=== PATIENT | female | born 1980 | race Caucasian/White ===

== ENCOUNTER 2022-12-25 10:00 | Outpatient (RCR) | payer OTHER, SELFPAY ==
--- NOTE | 2022-06-24 11:12 | URNOTE ---
REceived request for prior auth for Zoladex ([id number]). Per [facility], prior authorization is not required.
[2022-07-10 11:32] VITALS: BP 128/85; PULSE 99; RESP 16; TEMP 36.7; O2SAT 98
[2022-07-10] MEDS: GOSERELIN ACETATE 3.6 MG IMPLANT SUBCUT (12:20)
--- NOTE | 2022-07-10 12:40 | PC.NURSE ---
Zoladex & Labs Che present at [facility] for her first Zoladex injection. MD orders read that labs (CBC & CMP) are due prior to injection. These labs were drawn at [facility] on 07/09/2022 (yesterday). CBC was resulted, however the CMP was pending. Contacted [facility] and they reported that the [facility] was running behind and that things are taking longer than usual. RN contacted the [facility] and spoke with a machine oiler who discussed case with the oncology team. This medical technical writer was given verbal permission to proceed with Zoladex today without CMP results. RN also inquired about whether or not labs were needed prior to every Zoladex or just this first one. It was clarified that labs are only needed prior to this first injection. Pt will see Dr. Yip next week and will also discuss lab schedule with her at that time. Education provided re: Zoladex. Chemo Care print out was provided. Pt tolerated injection well. Supportive listening provided. Luba Silveira RN
[2022-08-07 10:00] VITALS: BP 117/82; PULSE 92; RESP 18; TEMP 36.4; O2SAT 96
[2022-08-07] MEDS: GOSERELIN ACETATE 3.6 MG IMPLANT SUBCUT (10:18)
[2022-09-04 09:30] VITALS: BP 137/90; PULSE 90; RESP 16; TEMP 36.1; O2SAT 96
[2022-09-04] MEDS: GOSERELIN ACETATE 3.6 MG IMPLANT SUBCUT (09:59)
[2022-10-02 10:04] VITALS: BP 124/85; PULSE 80; RESP 16; TEMP 36.2; O2SAT 98
[2022-10-02] MEDS: GOSERELIN ACETATE 3.6 MG IMPLANT SUBCUT (10:17)
[2022-10-30 10:06] VITALS: BP 116/68; PULSE 93; RESP 16; TEMP 37.1; O2SAT 97
[2022-10-30] MEDS: GOSERELIN ACETATE 3.6 MG IMPLANT SUBCUT (10:32)
[2022-11-27 08:51] VITALS: BP 112/82; PULSE 88; RESP 16; TEMP 35.8; O2SAT 98
[2022-11-27] MEDS: GOSERELIN ACETATE 3.6 MG IMPLANT SUBCUT (09:03)
[2022-12-25 09:46] VITALS: BP 118/80; PULSE 97; RESP 16; TEMP 36; O2SAT 98
[2022-12-25] MEDS: GOSERELIN ACETATE 3.6 MG IMPLANT SUBCUT (10:08)
== END 2023-01-06 23:59 | disposition home or self-care (01) ==
LOC: CCIC 10:00
PROVIDERS: Visit Provider Clinical Nurse Specialist
DX: C50.912 Malignant neoplasm of unspecified site of left female breast (principal); Z79.811 Long term (current) use of aromatase inhibitors
CPT/HCPCS: 96401; J9202

== ENCOUNTER 2023-07-09 09:00 | Outpatient (RCR) | payer OTHER, SELFPAY ==
[2023-01-22] MEDS: GOSERELIN ACETATE 3.6 MG IMPLANT SUBCUT (09:37)
[2023-01-22 10:20] VITALS: BP 133/83; PULSE 86; RESP 16; TEMP 36.4; O2SAT 98
[2023-02-19 08:08] VITALS: BP 124/84; PULSE 79; RESP 16; TEMP 35.5; O2SAT 97
[2023-02-19] MEDS: GOSERELIN ACETATE 3.6 MG IMPLANT SUBCUT (08:20)
[2023-03-19 09:10] VITALS: BP 127/84; PULSE 84; RESP 16; TEMP 36.1; O2SAT 97
[2023-03-19] MEDS: GOSERELIN ACETATE 3.6 MG IMPLANT SUBCUT (09:38)
[2023-04-16 09:12] VITALS: BP 113/77; PULSE 103; RESP 18; TEMP 36.8; O2SAT 98
[2023-04-16] MEDS: GOSERELIN ACETATE 3.6 MG IMPLANT SUBCUT (09:37)
[2023-05-14 09:00] VITALS: BP 112/75; PULSE 82; RESP 14; TEMP 36.1; O2SAT 99
[2023-05-14] MEDS: GOSERELIN ACETATE 3.6 MG IMPLANT SUBCUT (09:21)
[2023-06-11 08:57] VITALS: BP 114/78; PULSE 93; RESP 16; TEMP 35.7; O2SAT 97
[2023-06-11] MEDS: GOSERELIN ACETATE 3.6 MG IMPLANT SUBCUT (09:08)
--- NOTE | 2023-07-05 09:37 | URNOTE ---
Received request for prior authorization for Zoladex ([id number]). Per [facility], prior authorization is not required per Rep. Ángela Guzman. Ref# [id number].
[2023-07-09 08:59] VITALS: BP 113/74; PULSE 92; RESP 16; TEMP 36.2; O2SAT 99
[2023-07-09] MEDS: GOSERELIN ACETATE 3.6 MG IMPLANT SUBCUT (09:39)
== END 2023-07-21 23:59 | disposition home or self-care (01) ==
LOC: CCIC 09:00
PROVIDERS: Visit Provider Clinical Nurse Specialist
DX: C50.912 Malignant neoplasm of unspecified site of left female breast (principal); Z17.0 Estrogen receptor positive status [ER+]
CPT/HCPCS: 96372; 96401; J9202

== ENCOUNTER 2023-12-24 09:00 | Outpatient (RCR) | payer OTHER, SELFPAY ==
[2023-08-06 09:20] VITALS: BP 113/85; PULSE 88; RESP 16; TEMP 36.4; O2SAT 98
[2023-08-06] MEDS: GOSERELIN ACETATE 3.6 MG IMPLANT SUBCUT (09:38)
[2023-09-03 08:58] VITALS: BP 121/80; PULSE 73; RESP 16; TEMP 36.6; O2SAT 100
[2023-09-03] MEDS: GOSERELIN ACETATE 3.6 MG IMPLANT SUBCUT (09:14)
[2023-10-01 08:59] VITALS: BP 120/84; PULSE 100; RESP 16; TEMP 36.1; O2SAT 100
[2023-10-01] MEDS: GOSERELIN ACETATE 3.6 MG IMPLANT SUBCUT (09:04)
[2023-10-29 08:51] VITALS: BP 111/78; PULSE 85; RESP 18; TEMP 35.9; O2SAT 100
[2023-10-29 08:57] VITALS: BP 111/78; PULSE 85; RESP 18; TEMP 35.9; O2SAT 100
[2023-10-29] MEDS: GOSERELIN ACETATE 3.6 MG IMPLANT SUBCUT (09:02)
[2023-11-26 09:00] VITALS: BP 127/84; PULSE 102; RESP 16; TEMP 35.8; O2SAT 100
[2023-12-24 09:06] VITALS: BP 142/89; PULSE 86; RESP 16; TEMP 35.7; O2SAT 100
[2023-12-24] MEDS: GOSERELIN ACETATE 3.6 MG IMPLANT SUBCUT (09:30)
[2024-01-21 08:54] VITALS: BP 129/85; PULSE 85; RESP 16; TEMP 36.3; O2SAT 96
[2024-01-21] MEDS: GOSERELIN ACETATE 3.6 MG IMPLANT SUBCUT (08:55)
== END 2024-02-02 23:59 | disposition home or self-care (01) ==
LOC: CCIC 09:00
PROVIDERS: PCP Obstetrics & Gynecology; Referring Provider Obstetrics & Gynecology; Visit Provider Clinical Nurse Specialist
DX: C50.912 Malignant neoplasm of unspecified site of left female breast (principal); Z17.0 Estrogen receptor positive status [ER+]; Z79.811 Long term (current) use of aromatase inhibitors
CPT/HCPCS: 96401; J9202

== ENCOUNTER 2024-08-04 09:00 | Outpatient (RCR) | payer OTHER, SELFPAY ==
[2024-02-18 08:52] VITALS: BP 147/90; PULSE 71; RESP 16; TEMP 36.3; O2SAT 99
[2024-02-18] MEDS: GOSERELIN ACETATE 3.6 MG IMPLANT SUBCUT (09:01)
[2024-03-17 09:24] VITALS: BP 137/88; PULSE 95; RESP 16; TEMP 36.4; O2SAT 97
[2024-03-17] MEDS: GOSERELIN ACETATE 3.6 MG IMPLANT SUBCUT (09:39)
[2024-04-14 09:02] VITALS: BP 121/82; PULSE 90; RESP 16; TEMP 36.2; O2SAT 96
[2024-04-14] MEDS: GOSERELIN ACETATE 3.6 MG IMPLANT SUBCUT (09:26)
[2024-05-12 09:01] VITALS: BP 118/82; PULSE 82; RESP 16; TEMP 36.2; O2SAT 97
[2024-05-12] MEDS: GOSERELIN ACETATE 3.6 MG IMPLANT SUBCUT (12:16)
[2024-06-09 09:16] VITALS: BP 139/84; PULSE 75; RESP 17; TEMP 36.2; O2SAT 98
[2024-06-09] MEDS: GOSERELIN ACETATE 3.6 MG IMPLANT SUBCUT (09:35)
--- NOTE | 2024-07-04 11:13 | URNOTE ---
Per Nancy at [facility], prior auth is not required for Zoladex ([id number]). Call ref #[id number]
[2024-07-07] MEDS: GOSERELIN ACETATE 3.6 MG IMPLANT SUBCUT (14:43)
[2024-08-04 09:02] VITALS: BP 121/81; PULSE 95; RESP 18; TEMP 36.1; O2SAT 98
[2024-08-04] MEDS: GOSERELIN ACETATE 3.6 MG IMPLANT SUBCUT (09:11)
== END 2024-08-16 23:59 | disposition home or self-care (01) ==
LOC: CCIC 09:00
PROVIDERS: PCP Obstetrics & Gynecology; Referring Provider Obstetrics & Gynecology; Visit Provider Clinical Nurse Specialist
DX: C50.912 Malignant neoplasm of unspecified site of left female breast (principal); Z17.0 Estrogen receptor positive status [ER+]; Z79.811 Long term (current) use of aromatase inhibitors
CPT/HCPCS: 96401; 96402; J9202

== ENCOUNTER 2025-02-23 09:00 | Outpatient (RCR) | payer OTHER, SELFPAY ==
[2024-09-01 09:00] VITALS: BP 124/85; PULSE 91; RESP 17; TEMP 36.8; O2SAT 98
[2024-09-01] MEDS: GOSERELIN ACETATE 3.6 MG IMPLANT SUBCUT (09:17)
[2024-09-29 08:40] VITALS: BP 104/72; PULSE 100; RESP 16; TEMP 36.6; O2SAT 96
[2024-09-29] MEDS: GOSERELIN ACETATE 3.6 MG IMPLANT SUBCUT (09:01)
[2024-10-30] MEDS: GOSERELIN ACETATE 3.6 MG IMPLANT SUBCUT (15:21)
[2024-10-30 15:23] VITALS: BP 119/84; PULSE 102; RESP 16; TEMP 36.3; O2SAT 98
[2024-11-29 10:46] VITALS: BP 137/83; PULSE 93; RESP 18; TEMP 36.1; O2SAT 98
[2024-11-29] MEDS: GOSERELIN ACETATE 3.6 MG IMPLANT SUBCUT (10:53)
[2024-12-29 14:26] VITALS: BP 131/86; PULSE 90; RESP 18; TEMP 36.7; O2SAT 97
[2024-12-29] MEDS: GOSERELIN ACETATE 3.6 MG IMPLANT SUBCUT (14:30)
[2025-01-25] MEDS: GOSERELIN ACETATE 3.6 MG IMPLANT SUBCUT (14:54)
[2025-02-23 09:00] VITALS: BP 131/84; PULSE 85; RESP 16; TEMP 36.3; O2SAT 97
[2025-02-23] MEDS: GOSERELIN ACETATE 3.6 MG IMPLANT SUBCUT (09:15)
== END 2025-02-28 23:59 | disposition home or self-care (01) ==
LOC: CCIC 09:00
PROVIDERS: Visit Provider Internal Medicine Hematology & Oncology
DX: C50.912 Malignant neoplasm of unspecified site of left female breast (principal); Z17.0 Estrogen receptor positive status [ER+]; Z79.811 Long term (current) use of aromatase inhibitors
CPT/HCPCS: 96402; 99202; 99203; J9202

== ENCOUNTER 2025-07-26 07:25 | Outpatient (CLI) | payer OTHER, SELFPAY ==
--- NOTE | 2025-07-26 08:00 | CRLHL7_ITS ---
For Patients: As a result of the Century Cures Act, medical imaging exams and procedure reports are released immediately into your electronic medical record. You may view this report before your referring provider. If you have questions, please contact your health care provider. Indication: PALPABLE STRUCTURE LUQ, FLOATING RIB/MASS, HISTORY OF BREAST CANCER Technique: CT Abdomen/Pelvis 100CC ISOVUE 370 INTRAVENOUS CONTRAST AND WATER PREP Please note that all CT scans at this facility use dose modulation, iterative reconstruction, and/or weight-based dosing when appropriate to reduce radiation dose to as low as reasonably achievable. Comparison: CT-PET 05/06/2021 Findings: Lung bases clear. Postop changes of bilateral mastectomy with implant reconstruction partially visualized. There is no intrahepatic mass. Gallbladder is normal. No calcified gallstones. No biliary obstruction. Pancreas is normal. Normal spleen. Adrenal glands are within normal limits. Normal kidneys. No hiatal hernia. Bladder is normal. No pelvic mass. Uterus and ovaries appear unremarkable. Normal appendix. No bowel obstruction or free air. No free fluid or abscess. No intra-abdominal or intrapelvic adenopathy. The osseous structures appear unremarkable including the left lower ribcage. No evidence of floating rib. No abdominal wall hernia. No collection of fluid within the subcutaneous tissues. No fracture. Degenerative joint disease of both hips. Impression: No suspicious findings. No evidence of mass or rib anomaly. Please note that all CT scans at this facility use dose modulation, iterative reconstruction, and/or weight-based dosing when appropriate to reduce radiation dose to as low as reasonably achievable. Dictated by Christian Stevens MD @ 07/26/2025 11:23:55 AM (Electronically Signed)
== END 2025-07-26 07:26 | disposition home or self-care (01) ==
LOC: CT 07:26
PROVIDERS: PCP Physician Assistant Medical; Visit Provider Internal Medicine Hematology & Oncology
DX: R19.02 Left upper quadrant abdominal swelling, mass and lump (principal); C50.912 Malignant neoplasm of unspecified site of left female breast
CPT/HCPCS: 74177; Q9967